=== PATIENT | female | born 1985 | race Caucasian/White ===

== ENCOUNTER 2019-07-10 09:04 | Emergency (ER) | payer SELFPAY ==
[2019-07-10] MEDS ORDERED: AZITHROMYCIN 250 MG TAB ONE (09:43)
[2019-07-10] MEDS ORDERED: METHYLPREDNISOLONE 125 MG INJ ONE (09:43)
[2019-07-10] MEDS ORDERED: IPRATROPIUM BROM 0.5MG/2.5ML ONE (09:43)
[2019-07-10] MEDS ORDERED: ALBUTEROL 2.5 MG/3 ML NEB SOL ONE (09:43)
[2019-07-10 10:13] LABS: Absolute Lymphocytes (CBC) 1.5 K/uL (0.7-4.9); Basophils % 0.4 % (0-1.3); Hematocrit 42.4 % (36.0-45.0); Lymphocytes % 12.1 % (15.3-44.8); MPV 8.4 fL (7.6-11.3); RBC Red Blood Cell Count 4.86 M/uL (3.86-4.86)
[2019-07-10 10:15] LABS: Protime INR 1.16
--- NOTE | 2019-07-10 10:39 | RAD REPORT ---
EXAM DESCRIPTION: Elizabeth Single View07/10/2019 10:28 am CLINICAL HISTORY: cough COMPARISON: none FINDINGS: The left lateral base is hazy. Right lung appears clear. The heart is normal size IMPRESSION: Left lateral base is hazy which may be secondary to a mild infiltrate or overlying soft tissue. PA and lateral chest series may be helpful for further evaluation
[2019-07-10 10:42] LABS: ALT/SGPT 27 U/L (12-78); AST/SGOT 19 U/L (15-37); Albumin 3.7 g/dL (3.4-5.0); Alkaline Phosphatase 90 U/L (45-117); BUN Blood Urea Nitrogen 5 mg/dL (7-18); Bicarbonate 26 mmol/L (21-32); Bilirubin Direct 0.1 mg/dL (0-0.2); Bilirubin Total 0.5 mg/dL (0.2-1.0); CKMB Creatine Kinase MB < 1.0 ng/mL (0.3-3.6); Creatine Phosphokinase 146 U/L (26-192); Glucose Level 96 mg/dL (74-106); Lipase 70 U/L (73-393); Magnesium 2.3 mg/dL (1.8-2.4); NT PRO-BNP 10 pg/mL (<125); Potassium 3.8 mmol/L (3.5-5.1); Protein, Total 8.2 g/dL (6.4-8.2); Sodium Level 136 mmol/L (136-145); Troponin (Emerg Dept Use Only) < 0.02 ng/mL (0.0-0.045)
--- NOTE | 2019-07-10 11:25 | ER ---
Nurse's Notes [facility] Name: Marixa Acosta Age: 33 yrs Sex: Female : 1985 Arrival Date: 07/10/2019 Time: 09:06 Bed 6 Private MD: Diagnosis: Pneumonia due to other specified bacteria Presentation: 07/10 09:23 Presenting complaint: Patient states: Painful cough, shortness of breath and sore ss throat that began 3 days ago, became worse last night. Fever that began yesterday. Transition of care: patient was not received from another setting of care. Onset of symptoms was July 07, 2019. Risk Assessment: Do you want to hurt yourself or someone else? Patient reports no desire to harm self or others. Initial Sepsis Screen: Does the patient meet any 2 criteria? HR > 90 bpm. Does the patient have a suspected source of infection? Yes: Productive cough/pneumonia. Care prior to arrival: None. 09:23 Method Of Arrival: Ambulatory ss 09:23 Acuity: DEBI 2 ss Historical: - Allergies: : No Known Allergies; ss - Home Meds: : None [Active]; ss - PMHx: : None; ss - PSHx: : None; ss - Immunization history:: Adult Immunizations up to date. - Social history:: Smoking status: Patient uses tobacco products, 3-4 cigarettes/ day, Patient/guardian denies using alcohol, street drugs, The patient lives with family. - Ebola Screening: : Patient denies exposure to infectious person Patient denies travel to an Ebola-affected area in the 21 days before illness onset. - Family history:: not pertinent. Screenin:30 Abuse screen: Denies threats or abuse. Nutritional screening: No deficits noted. aa5 Tuberculosis screening: No symptoms or risk factors identified. Fall Risk None identified. Assessment: 09:30 General: Appears uncomfortable, Behavior is calm, cooperative. Pain: Complains of pain aa5 in throat and chest with cough Pain does not radiate. Pain currently is 6 out of 10 on a pain scale. Quality of pain is described as aching, Pain began 2-3 days ago. Is intermittent. Neuro: Level of Consciousness is awake, alert, obeys commands, Oriented to person, place, time, situation. Cardiovascular: Heart tones S1 S2 present Rhythm is regular. Respiratory: Reports shortness of breath cough Airway is patent Respiratory effort is even, unlabored, Respiratory pattern is tachypnea Breath sounds with wheezes bilaterally. GI: Abdomen is round non-distended, Bowel sounds present X 4 quads. Abd is soft and non tender X 4 quads. : No signs and/or symptoms were reported regarding the genitourinary system. EENT: Throat is reddened. Derm: Skin is pink, warm \T\ dry. Musculoskeletal: Range of motion: intact in all extremities. 10:40 Reassessment: Patient is alert, oriented x 3, equal unlabored respirations, skin aa5 warm/dry/pink. Pt reports SOB has improved. . 10:59 Reassessment: MD at bedside discussing results and POC with patient . aa5 Vital Signs: 09:22 BP 126 / 86; Pulse 104; Resp 19; Temp 98.8(TE); Pulse Ox 94% on R/A; Weight 99.79 kg; ss Height 5 ft. 7 in. (170.18 cm); Pain 6/10; 10:40 BP 124 / 73; Pulse 90; Resp 20 S; Pulse Ox 94% on R/A; aa5 11:55 BP 117 / 77; Pulse 97; Resp 16 S; Pulse Ox 93% on R/A; jl7 09:22 Body Mass Index 34.46 (99.79 kg, 170.18 cm) ED Course: 09:06 Patient arrived in ED. as 09:20 Tonny Rodgers MD is Attending Physician. ma2 09:22 Arm band placed on right wrist. ss 09:23 Keyla Noriega, RN is Primary Nurse. aa5 09:26 Triage completed. ss 09:30 Patient has correct armband on for positive identification. Placed in gown. Bed in low aa5 position. Call light in reach. Side rails up X2. 09:52 Initial lab(s) drawn, by al, sent to lab. First set of blood cultures drawn by me. aa5 Inserted saline lock: 20 gauge in right antecubital area, using aseptic technique. Blood collected. 09:57 EKG done, by teletype technician. reviewed by Tonny Rodgers MD. at1 10:09 Second set of blood cultures drawn by me. aa5 10:25 XRAY CXR (1 view) In Process Unspecified. EDMS 11:50 No provider procedures requiring assistance completed. IV discontinued, intact, jl7 bleeding controlled, No redness/swelling at site. Pressure dressing applied. Administered Medications: 09:37 CANCELLED (Physician Discretion): Albuterol 2.5 mg Inhalation every 20 minutes x3 aa5 09:37 CANCELLED (Physician Discretion): AtroVENT Aerosol 0.5 mg Inhalation once; Every 20 min aa5 for a total of 3 treatments x3 09:38 Drug: DuoNeb (3:1) (2.5 mg - 0.5 mg) 3 ml Route: Nebulizer; aa5 10:20 Follow up: Response: No adverse reaction; Marked relief of symptoms; Wheezing diminishedaa5 09:52 Drug: SOLU-Medrol 125 mg Route: IVP; Site: right antecubital; ss 10:00 Follow up: Response: No adverse reaction aa5 10:17 Drug: Zithromax 500 mg Route: PO; aa5 10:50 Follow up: Response: No adverse reaction aa5 Outcome: 11:25 Discharge ordered by . [email or web address] 11:50 Discharged to home ambulatory. jl7 11:50 Condition: stable 11:50 Discharge instructions given to patient, Instructed on discharge instructions, follow up and referral plans. medication usage, Demonstrated understanding of instructions, follow-up care, medications, Prescriptions given X 3. 11:54 Patient left the ED. jl7 Signatures: Dispatcher [employer] EDMS Suzy Acosta Audri, RN RN aa5 Autumn Luevano RN RN Debbie Zuleta, county engineer EKG Tat1 Brandon Moreno RN RN jl7 Tonny Rodgers MD MD ma2 Corrections: (The following items were deleted from the chart) 10: 09:52 Inserted saline lock: 20 gauge in right antecubital area, using aseptic aa5 technique. Blood collected. 10: 09:52 Initial lab(s) drawn, by al, sent to lab. First set of blood cultures drawn by aa5 al, : 09:20 General: Appears uncomfortable, Behavior is calm, cooperative, aa5 aa5 :53 09:20 Pain: Complains of pain in throat and chest with cough Pain does not radiate. aa5 Pain currently is 6 out of 10 on a pain scale. Quality of pain is described as aching, Pain began 2-3 days ago. Is intermittent, aa5 :20 Neuro: Level of Consciousness is awake, alert, obeys commands, Oriented to aa5 person, place, time, situation, aa5 :20 Cardiovascular: Heart tones S1 S2 present Rhythm is regular aa5 aa5 :20 Respiratory: Reports shortness of breath cough Airway is patent Respiratory aa5 effort is even, unlabored, Respiratory pattern is tachypnea Breath sounds with wheezes bilaterally. aa5 :20 GI: Abdomen is round non-distended, Bowel sounds present X 4 quads. Abd is soft aa5 and non tender X 4 quads. aa5 :20 : No signs and/or symptoms were reported regarding the genitourinary system. aa5aa5 :20 EENT: Throat is reddened aa5 aa5 :20 Derm: Skin is pink, warm \T\ dry. aa5 aa5 :20 Musculoskeletal: Range of motion: intact in all extremities, aa aa
--- NOTE | 2019-07-10 11:25 | EDPHYS ---
Physician Documentation [facility] Name: Marixa Acosta Age: 33 yrs Sex: Female : 1985 Arrival Date: 07/10/2019 Time: 09:06 Bed 6 Private MD: ED Physician Tonny Rodgers HPI: 07/10 09:59 This 33 yrs old Female presents to ER via Ambulatory with complaints of ma2 Shortness Of Breath, Cough. 09:59 The patient has shortness of breath at rest. Onset: The symptoms/episode began/occurred ma2 gradually, 3 day(s) ago. Associated signs and symptoms: Pertinent negatives: non-productive cough, dizziness, hemoptysis. Severity of symptoms: At their worst the symptoms were mild in the emergency department the symptoms are unchanged. The patient has not experienced similar symptoms in the past. Historical: - Allergies: 09:27 No Known Allergies; ss - Home Meds: 09:27 None [Active]; ss - PMHx: : None; ss - PSHx: 09:27 None; ss - Immunization history:: Adult Immunizations up to date. - Social history:: Smoking status: Patient uses tobacco products, 3-4 cigarettes/ day, Patient/guardian denies using alcohol, street drugs, The patient lives with family. - Ebola Screening: : Patient denies exposure to infectious person Patient denies travel to an Ebola-affected area in the 21 days before illness onset. - Family history:: not pertinent. ROS: 09:59 Constitutional: Negative for fever, chills, and weight loss. ma2 09:59 All other systems are negative. Exam: 09:59 Constitutional: This is a well developed, well nourished patient who is awake, alert, ma2 and in no acute distress. ENT: Nares patent. No nasal discharge, no septal abnormalities noted. Tympanic membranes are normal and external auditory canals are clear. Oropharynx with no redness, swelling, or masses, exudates, or evidence of obstruction, uvula midline. Mucous membranes moist. Neck: Trachea midline, no thyromegaly or masses palpated, and no cervical lymphadenopathy. Supple, full range of motion without nuchal rigidity, or vertebral point tenderness. No Meningismus. Chest/axilla: Normal chest wall appearance and motion. Nontender with no deformity. No lesions are appreciated. Cardiovascular: Regular rate and rhythm with a normal S1 and S2. No gallops, murmurs, or rubs. Normal PMI, no JVD. No pulse deficits. Abdomen/GI: Soft, non-tender, with normal bowel sounds. No distension or tympany. No guarding or rebound. No evidence of tenderness throughout. MS/ Extremity: Pulses equal, no cyanosis. Neurovascular intact. Full, normal range of motion. Neuro: Awake and alert, GCS 15, oriented to person, place, time, and situation. Cranial nerves II-XII grossly intact. Motor strength 5/5 in all extremities. Sensory grossly intact. Cerebellar exam normal. Normal gait. 09:59 Respiratory: mild respiratory distress is noted, Respirations: Breath sounds: + upper airway congestion. wheezing: that is mild, Respiratory rate: 18 Vital Signs: 09:22 BP 126 / 86; Pulse 104; Resp 19; Temp 98.8(TE); Pulse Ox 94% on R/A; Weight 99.79 kg; ss Height 5 ft. 7 in. (170.18 cm); Pain 6/10; 10:40 BP 124 / 73; Pulse 90; Resp 20 S; Pulse Ox 94% on R/A; aa5 11:55 BP 117 / 77; Pulse 97; Resp 16 S; Pulse Ox 93% on R/A; jl7 09:22 Body Mass Index 34.46 (99.79 kg, 170.18 cm) ss MDM: 09:20 Patient medically screened. [facility] 09:59 Differential diagnosis: Anemia Anxiety Reaction asthma, reactive airway disease. [facility] 11:24 Data reviewed: vital signs, nurses notes. Counseling: I had a detailed discussion with ma2 the patient and/or guardian regarding: the historical points, exam findings, and any diagnostic results supporting the discharge/admit diagnosis, the presence of at least one elevated blood pressure reading (>120/80) during this emergency department visit, the need for outpatient follow up. 07/10 09:34 Order name: Blood Culture Adult (2) [facility] 07/10 09:34 Order name: BMP; Complete Time: 10:51 [facility] 07/10 09:34 Order name: CBC with Diff; Complete Time: 10:51 [facility] 07/10 09:34 Order name: Ckmb; Complete Time: 10:51 07/10 09:34 Order name: CPK; Complete Time: 10:51 07/10 09:34 Order name: D-Dimer; Complete Time: 10:51 07/10 09:34 Order name: XRAY CXR (1 view); Complete Time: 10:51 07/10 09:34 Order name: Hepatic Function; Complete Time: 10:51 07/10 09:34 Order name: Lipase; Complete Time: 10:51 07/10 09:34 Order name: Magnesium; Complete Time: 10:51 07/10 09:34 Order name: NT PRO-BNP; Complete Time: 10:51 07/10 09:34 Order name: PT-INR; Complete Time: 10:51 07/10 09:34 Order name: Ptt, Activated; Complete Time: 10:51 07/10 09:34 Order name: Troponin (emerg Dept Use Only); Complete Time: 10:51 07/10 09:34 Order name: EKG; Complete Time: 09:35 07/10 09:34 Order name: Cardiac monitoring; Complete Time: 09:59 07/10 09:34 Order name: EKG - Nurse/Tech; Complete Time: 09:59 ma07/10 09:34 Order name: IV Saline Lock; Complete Time: 09:59 ma07/10 09:34 Order name: Labs collected and sent; Complete Time: 09:59 ma07/10 09:34 Order name: O2 Per Protocol; Complete Time: 09:59 07/10 09:34 Order name: O2 Sat Monitoring; Complete Time: 09:59 ma2 Administered Medications: 09:37 CANCELLED (Physician Discretion): Albuterol 2.5 mg Inhalation every 20 minutes x3 aa5 09:37 CANCELLED (Physician Discretion): AtroVENT Aerosol 0.5 mg Inhalation once; Every 20 min aa5 for a total of 3 treatments x3 09:38 Drug: DuoNeb (3:1) (2.5 mg - 0.5 mg) 3 ml Route: Nebulizer; aa5 10:20 Follow up: Response: No adverse reaction; Marked relief of symptoms; Wheezing diminishedaa5 09:52 Drug: SOLU-Medrol 125 mg Route: IVP; Site: right antecubital; ss 10:00 Follow up: Response: No adverse reaction aa5 10:17 Drug: Zithromax 500 mg Route: PO; aa5 10:50 Follow up: Response: No adverse reaction aa5 Disposition: 07/10/19 11:25 Discharged to Home. Impression: Pneumonia due to other specified bacteria. - Condition is Stable. - Discharge Instructions: Community-Acquired Pneumonia, Adult. - Prescriptions for Zithromax Z- Yogesh 250 mg Oral Tablet - take 1 tablet by ORAL route as directed for 5 days Day 1 - take two (2) tablets one time. Day 2, 3, 4 , 5 take one (1) tablet once daily.; 6 tablet. Medrol (Yogesh) 4 mg Oral Tablets, Dose Pack - take 1 tablet by ORAL route as directed - follow package instructions; 1 packet. Albuterol Sulfate 90 mcg/actuation - inhale 1-2 puff by INHALATION route every 4-6 hours; 1 Inhaler. - Medication Reconciliation Form, Thank You Letter, Antibiotic Education, Prescription Opioid Use form. - Follow up: Private Physician; When: Tomorrow; Reason: Continuance of care. Signatures: Dispatcher [employer] EDCO Keyla Noriega RN RN aa5 Autumn Luevano RN RN ss Leal, Jahala, RN RN jl7 Tonny Rodgers MD MD ma2 Corrections: (The following items were deleted from the chart) 09:37 09:34 Albuterol 2.5 mg Inhalation every 20 minutes x3 ordered. ma2 aa5 09:37 09:34 AtroVENT Aerosol 0.5 mg Inhalation once; Every 20 min for a total of 3 treatments aa5 x3 ordered. ma2 11:26 11:25 07/10/2019 11:25 Discharged to Home. Impression: Pneumonia due to staphylococcus, ma2 unspecified. Condition is Stable. Prescriptions for Zithromax Z-Yogesh 250 mg Oral Tablet - take 1 tablet by ORAL route as directed for 5 days Day 1 - take two (2) tablets one time. Day 2, 3, 4 , 5 take one (1) tablet once daily.; 6 tablet, Medrol (Yogesh) 4 mg Oral Tablets, Dose Pack - take 1 tablet by ORAL route as directed - follow package instructions; 1 packet, Albuterol Sulfate 90 mcg/actuation - inhale 1-2 puff by INHALATION route every 4-6 hours; 1 Inhaler. and Forms are Medication Reconciliation Form, Thank You Letter, Antibiotic Education, Prescription Opioid Use. Follow up: Private Physician; When: Tomorrow; Reason: Continuance of care. ma2 11:54 11:26 07/10/2019 11:25 Discharged to Home. Impression: Pneumonia due to other specified jl7 bacteria. Condition is Stable. Prescriptions for Zithromax Z-Yogesh 250 mg Oral Tablet - take 1 tablet by ORAL route as directed for 5 days Day 1 - take two (2) tablets one time. Day 2, 3, 4 , 5 take one (1) tablet once daily.; 6 tablet, Medrol (Yogesh) 4 mg Oral Tablets, Dose Pack - take 1 tablet by ORAL route as directed - follow package instructions; 1 packet, Albuterol Sulfate 90 mcg/actuation - inhale 1-2 puff by INHALATION route every 4-6 hours; 1 Inhaler. and Forms are Medication Reconciliation Form, Thank You Letter, Antibiotic Education, Prescription Opioid Use. Follow up: Private Physician; When: Tomorrow; Reason: Continuance of care. ma2
[2019-07-10 12:33] VITALS: TEMP 98.8; O2SAT 94
[2019-07-10 12:34] VITALS: BP 124/73
--- NOTE | 2019-07-10 18:36 | EKG ---
Test Date: 2019-07-10 Test Time: 09:53:12 [employer] Field Service Technician: ELMER MEASUREMENT RESULTS: Intervals: Rate: 89 MN: 138 QRSD: 94 QT: 374 QTc: 455 [place]: P: 53 MN: 138 QRS: -6 T: 50 INTERPRETIVE STATEMENTS: Normal sinus rhythm Normal ECG No previous ECG available for comparison Electronically Signed On 07-10-19 18:34:55 [employer]F CONCIERGE by Remberto Larkin
== END 2019-07-10 11:54 | disposition home or self-care (01) ==
LOC: ER 09:04
DX: J15.8 Pneumonia due to other specified bacteria (principal); Z72.0 Tobacco use
CPT/HCPCS: 36415; 71045; 80048; 80076; 82550; 82553; 83690; 83735; 83880; 84484; 85025; 85379; 85610; 85730; 87040; 93005; 94640; 96374; 99284; J2930